=== PATIENT | female | born 1950 | race Two or more races ===

== ENCOUNTER 2019-10-10 12:00 | Inpatient (IN) | payer SELFPAY ==
[~2019-10-10] VITALS: Ht 152.4 cm; Wt 77.6 kg
[2019-10-10] MEDS ORDERED: ACETAMINOPHEN 325MG TABLET PO STA (13:17)
[2019-10-10] MEDS ORDERED: SODIUM CHLORIDE 0.9% 1000ML BAG (SEPSIS BOLUS) IV ONE (13:30)
[2019-10-10 13:40] LABS: HEMATOCRIT. 39.1 % (36.0-48.0); HEMOGLOBIN. 13.6 g/dL (12.0-16.0); MEAN CORPUSCULAR HEMOGLOBIN 30.4 pg (28.0-32.0); MEAN CORPUSCULAR VOLUME 87.6 fL (81.0-99.0); MEAN PLATELET VOLUME 7.9 fl (7.4-10.4); PLATELET 201 x1000/uL (130-400); RED BLOOD CELL COUNT 4.46 mill/uL (4.2-5.4)
[2019-10-10 13:51] LABS: CHLORIDE 105 mEq/L (98-107)
[2019-10-10 13:58] LABS: CLARITY URINE CLOUDY (CLEAR); COLOR URINE DARK YELLOW (YELLOW); KETONES URINE TRACE (NEGATIVE); LEUKOCYTE ESTERASE URINE TRACE (NEGATIVE); NITRITE URINE NEGATIVE (NEGATIVE); OCCULT BLOOD URINE 3+ (NEGATIVE); PROTEIN URINE 3+ (NEGATIVE); SPECIFIC GRAVITY URINE 1.026 (1.005-1.030)
[2019-10-10 14:29] LABS: PLATELET ESTIMATE NORMAL
[2019-10-10] MEDS ORDERED: VANCOMYCIN 1 G PREMIX 200 ML IV ONE (14:30)
[2019-10-10] MEDS ORDERED: PIPERACILLIN/TAZ 3.375G PREMIX 50 ML IV ONE (14:30)
[2019-10-10] MEDS ORDERED: NOREPINEPHRINE 4MG/250ML PMX 250 ML IV ONE (17:53)
[2019-10-10] MEDS ORDERED: NOREPINEPHRINE 4 MG in DEXTROSE 5% WATER 250 ML IV PRN (18:15)
[2019-10-10] MEDS ORDERED: IPRATROPIUM/ALBUTEROL 0.5-3(2.5)MG/3ML NEB HHN PRN (20:30)
[2019-10-10] MEDS ORDERED: ONDANSETRON HCL 4MG/2ML INJ IV PRN (20:30)
[2019-10-10] MEDS ORDERED: VANCOMYCIN 1 G PREMIX 200 ML IV SCH (20:30)
[2019-10-10] MEDS ORDERED: LEVOFLOXACIN 500MG PREMIX 100 ML IV NR (21:22)
[2019-10-10] MEDS: SODIUM CHLORIDE 0.9% 1,000 ML IV SCH (21:31)
[2019-10-10] MEDS: METRONIDAZOLE 500 MG PREMIX 100 ML IV SCH (22:32)
[2019-10-11] VITALS (7 sets, daily range): BP systolic 108–135; BP diastolic 52–76
[2019-10-11] MEDS ORDERED: VANCOMYCIN 750 MG PREMIX 150 ML IV SCH (03:00)
[2019-10-11 04:43] LABS: HEMATOCRIT. 36.6 % (36.0-48.0); HEMOGLOBIN. 12.8 g/dL (12.0-16.0); MEAN CORPUSCULAR HEMOGLOBIN 30.6 pg (28.0-32.0); MEAN CORPUSCULAR VOLUME 87.4 fL (81.0-99.0); MEAN PLATELET VOLUME 8.6 fl (7.4-10.4); PLATELET 197 x1000/uL (130-400); RED BLOOD CELL COUNT 4.19 mill/uL (4.2-5.4); RED CELL DISTRIBUTION WIDTH 13.8 % (11.6-14.6)
[2019-10-11 04:48] LABS: CHLORIDE 108 mEq/L (98-107)
[2019-10-11 04:57] LABS: LDL CHOLESTEROL 98 mg/dL (5-100)
[2019-10-11 04:58] LABS: HDL CHOLESTEROL 28 mg/dL (40-59)
[2019-10-11] MEDS: METRONIDAZOLE 500 MG PREMIX 100 ML IV SCH ×3 (06:07→22:43)
[2019-10-11 06:58] LABS: PLATELET ESTIMATE NORMAL
[2019-10-11] MEDS: FAMOTIDINE 20MG TABLET PO SCH ×2 (08:54→22:43)
[2019-10-11] MEDS: ENOXAPARIN 40MG/0.4ML SYR SUBCUT SCH (08:54)
[2019-10-11] MEDS ORDERED: INFLUENZA VIRUS VACCINE(AFLURIA) 0.5ML SYR IM ONE (15:00)
[2019-10-11] MEDS ORDERED: PNEUMOCOCCAL 23-VAL P-SAC VAC 0.5 ML IM ONE (15:00)
[2019-10-11] MEDS: SODIUM CHLORIDE 0.9% INJ 3ML FLUSH IVF SCH ×2 (17:51→22:44)
[2019-10-11] MEDS: SODIUM CHLORIDE 0.9% 1,000 ML IV SCH (17:51)
[2019-10-11] MEDS ORDERED: VANCOMYCIN 500 MG PREMIX 100 ML IV SCH (18:00)
[2019-10-11] MEDS ORDERED: LEVOFLOXACIN 500MG PREMIX 100 ML IV SCH (21:30)
[2019-10-11] MEDS: LEVOFLOXACIN 500MG PREMIX 100 ML IV SCH (21:38)
[2019-10-11] MEDS: VANCOMYCIN 500 MG PREMIX 100 ML IV SCH (21:39)
[2019-10-12] VITALS (12 sets, daily range): BP systolic 99–162; BP diastolic 56–75
[2019-10-12] MEDS: SODIUM CHLORIDE 0.9% 1,000 ML IV SCH ×2 (05:00→13:22)
[2019-10-12] MEDS: METRONIDAZOLE 500 MG PREMIX 100 ML IV SCH ×3 (06:50→21:38)
[2019-10-12] MEDS: SODIUM CHLORIDE 0.9% INJ 3ML FLUSH IVF SCH ×3 (06:50→21:38)
[2019-10-12] MEDS: FAMOTIDINE 20MG TABLET PO SCH ×2 (08:09→21:36)
[2019-10-12] MEDS: ENOXAPARIN 40MG/0.4ML SYR SUBCUT SCH (08:09)
[2019-10-12] MEDS: VANCOMYCIN 500 MG PREMIX 100 ML IV SCH ×2 (08:09→21:37)
[2019-10-12] MEDS ORDERED: BISACODYL 5MG TABLET PO NR (14:00)
[2019-10-12] MEDS ORDERED: LACTULOSE 20G/30ML UDC PO NR (14:00)
[2019-10-12] MEDS: ACETAMINOPHEN 325MG TABLET PO PRN (14:33)
[2019-10-12 16:24] LABS: BASOPHILS % 0.1 % (0.0-2.0); EOSINOPHILS % 0.3 % (0.0-5.0); HEMATOCRIT. 35.2 % (36.0-48.0); HEMOGLOBIN. 12.3 g/dL (12.0-16.0); LYMPHOCYTES % 15.5 % (20.0-50.0); MEAN CORPUSCULAR HEMOGLOBIN 30.5 pg (28.0-32.0); MEAN CORPUSCULAR VOLUME 87.4 fL (81.0-99.0); MEAN PLATELET VOLUME 8.7 fl (7.4-10.4); MONOCYTES % 12.4 % (2.0-8.0); NEUTROPHILS % 71.7 % (40.0-76.0); PLATELET 212 x1000/uL (130-400); RED BLOOD CELL COUNT 4.02 mill/uL (4.2-5.4); RED CELL DISTRIBUTION WIDTH 13.5 % (11.6-14.6)
[2019-10-12 18:40] LABS: CHLORIDE 106 mEq/L (98-107)
[2019-10-12] MEDS: LEVOFLOXACIN 500MG PREMIX 100 ML IV SCH (21:37)
[2019-10-13] VITALS (12 sets, daily range): BP systolic 97–133; BP diastolic 45–72
[2019-10-13] MEDS: SODIUM CHLORIDE 0.9% 1,000 ML IV SCH ×2 (02:42→13:12)
[2019-10-13] MEDS: SODIUM CHLORIDE 0.9% INJ 3ML FLUSH IVF SCH ×3 (06:04→21:33)
[2019-10-13 06:52] LABS: BASOPHILS % 0.2 % (0.0-2.0); EOSINOPHILS % 0.4 % (0.0-5.0); HEMOGLOBIN. 12.8 g/dL (12.0-16.0); LYMPHOCYTES % 16.8 % (20.0-50.0); MEAN CORPUSCULAR HEMOGLOBIN 30.1 pg (28.0-32.0); MEAN PLATELET VOLUME 8.4 fl (7.4-10.4); MONOCYTES % 9.5 % (2.0-8.0); NEUTROPHILS % 73.1 % (40.0-76.0); PLATELET 238 x1000/uL (130-400); RED BLOOD CELL COUNT 4.25 mill/uL (4.2-5.4); RED CELL DISTRIBUTION WIDTH 13.6 % (11.6-14.6)
[2019-10-13 06:58] LABS: CHLORIDE 106 mEq/L (98-107)
[2019-10-13] MEDS: FAMOTIDINE 20MG TABLET PO SCH ×2 (08:17→21:32)
[2019-10-13] MEDS: ENOXAPARIN 40MG/0.4ML SYR SUBCUT SCH (08:17)
[2019-10-13] MEDS: ACETAMINOPHEN 325MG TABLET PO PRN (10:28)
[2019-10-13] MEDS ORDERED: FAMO-135 MT (20:52)
[2019-10-13] MEDS: LEVOFLOXACIN 500MG PREMIX 100 ML IV SCH (21:32)
[2019-10-14] VITALS: BP 97/48
[2019-10-14 02:00] VITALS: BP 106/54
[2019-10-14 04:00] VITALS: BP 113/64
[2019-10-14] MEDS: SODIUM CHLORIDE 0.9% 1,000 ML IV SCH (05:22)
[2019-10-14 05:28] VITALS: BP 117/68
[2019-10-14] MEDS: SODIUM CHLORIDE 0.9% INJ 3ML FLUSH IVF SCH (05:36)
[2019-10-14 06:00] VITALS: BP 99/49
[2019-10-14 07:30] VITALS: BP 117/68
[2019-10-14] MEDS: FAMOTIDINE 20MG TABLET PO SCH (08:21)
[2019-10-14] MEDS: ENOXAPARIN 40MG/0.4ML SYR SUBCUT SCH (08:22)
== END 2019-10-14 09:58 | disposition home or self-care (01) | DRG 720 ==
LOC: ER 12:00 → 3WST 14:35 → EDBEDREQSVC 17:43 → EDBEDREQ 17:52 → EDBEDREQSVC 10-11 08:44 → ENRESERV 10-11 09:27
PROVIDERS: ADMIT Family Medicine; ATTEND Family Medicine
PROC: 06HY33Z Insertion of Infusion Device into Lower Vein, Percutaneous Approach (ICD-10-PCS; principal; 2019-10-10)
DX: A41.9 Sepsis, unspecified organism (principal); J84.9 Interstitial pulmonary disease, unspecified; K85.90 Acute pancreatitis without necrosis or infection, unspecified; E44.1 Mild protein-calorie malnutrition; R73.9 Hyperglycemia, unspecified; N39.0 Urinary tract infection, site not specified; Z68.33 Body mass index [BMI] 33.0-33.9, adult
CPT/HCPCS: 36415; 71045; 74176; 80048; 80053; 80061; 80202; 81003; 82962; 83605; 84145; 84484; 85025; 87804; 90686; 90732; 93005; 96365; 99291; J1650; J1956; J2405; J2543; J3370; J3490; J7030

== ENCOUNTER 2022-10-15 13:27 | Emergency (ER) | payer MEDICAID ==
[~2022-10-15] VITALS: Ht 160 cm; Wt 80.0 kg
[~2022-10-15 13:27] MED LIST: FAMO-135 MT
[2022-10-15 13:34] VITALS: BP 175/145
[2022-10-15] MEDS ORDERED: ISOP30DR11 EACH EAR ×2 (14:43)
[2022-10-15] MEDS ORDERED: CARB-274 EACH EAR ×2 (14:45)
[2022-10-15] MEDS ORDERED: OFLO5DRO4 RIGHT EAR (14:47)
[2022-10-15] MEDS ORDERED: IBUP-2029 MT (14:48)
== END 2022-10-15 16:11 | disposition home or self-care (01) ==
LOC: ER 14:35
DX: H60.91 Unspecified otitis externa, right ear (principal); Z98.890 Other specified postprocedural states
CPT/HCPCS: 99283